=== PATIENT | female | born 1960 ===

== ENCOUNTER 2017-06-30 07:05 | Day surgery (SDC) | payer OTHER ==
[~2017-06-30 07:05] MED LIST: AVAPRO300 MG PO; SYNTHROID137 MCG PO; ZINC LOZENGES1 EACH PO
[2017-06-30] MEDS ORDERED: RECTICARE30 GM TOP (09:54)
[2017-06-30] MEDS ORDERED: PERCOCET 5-3251 EACH PO (09:54)
== END 2017-06-30 15:20 | disposition home or self-care (01) ==
LOC: CIR.AMB 07:05
DX: K64.8 Other hemorrhoids (principal)